=== PATIENT | female | born 1960 | race Caucasian/White ===

== ENCOUNTER 2024-11-17 11:00 | Outpatient (RCR) | payer BC ==
[~2024-11-17 11:00] MED LIST: CLARITIN-D 241 EACH PO; FLONASE NS; LEVOTHYROXINE50 MCG PO; LISINOPRIL-HCT1 EAC2 PO; LISINOPRIL-HCT1 EACH PO; PRAVASTATIN SOD40 MG PO
== END 2024-11-23 ==
LOC: OT 11:00
PROVIDERS: ATTEND Physician Assistant
DX: M77.8 Other enthesopathies, not elsewhere classified (principal)

== ENCOUNTER 2024-11-27 09:17 | Outpatient (RCR) | payer BC | END 2024-12-23 | LOC: OT 09:17 | PROVIDERS: ATTEND Physician Assistant | DX: M75.21 Bicipital tendinitis, right shoulder (principal) ==